=== PATIENT | female | born 1955 | race Caucasian/White ===

== ENCOUNTER 2018-02-03 17:15 | Emergency (ER) | payer OTHER ==
[~2018-02-03] VITALS: Ht 152.4 cm; Wt 68.0 kg
[2018-02-03] MEDS ORDERED: FENOFIBRATE145 MG (17:35)
[2018-02-03] MEDS ORDERED: COZAAR25 MG (17:35)
[2018-02-03] MEDS ORDERED: LIPITOR20 MG (17:35)
[2018-02-03] MEDS ORDERED: NAPROXEN250 MG (17:36)
[2018-02-03] MEDS ORDERED: LEVAQUIN750 MG (17:36)
== END 2018-02-03 20:25 | disposition home or self-care (01) ==
LOC: ER 17:15
DX: R42 Dizziness and giddiness (principal); B34.9 Viral infection, unspecified